=== PATIENT | female | born 1945 | race Caucasian/White ===

== ENCOUNTER 2023-05-01 16:43 | Emergency (ER) | payer MEDICARE, BC, SELFPAY ==
[2023-05-01 17:04] VITALS: BP 161/84; PULSE 78; RESP 16; TEMP 36.8; O2SAT 97; BMI 24.1
--- NOTE | 2023-05-01 18:39 | CTR_ITS ---
PROCEDURE INFORMATION: Exam: CT Cervical Spine Without Contrast Exam date and time: 05/01/2023 7:20 PM Age: 77 years old Clinical indication: Injury or trauma; Fall; Blunt trauma; Additional info: Fall/trauma TECHNIQUE: Imaging protocol: Computed tomography of the cervical spine without contrast. Radiation optimization: All CT scans at this facility use at least one of these dose optimization techniques: automated exposure control; mA and/or kV adjustment per patient size (includes targeted exams where dose is matched to clinical indication); or iterative reconstruction. COMPARISON: CT head wo con* [id number] 01/05/2023 19:20 RADIATION DOSE METRICS: Total DLP (mGy-cm): 173 FINDINGS: Bones/joints: The vertebral body alignment and stature is intact. No fracture. Benign bone island in the T2 vertebral body. Hypertrophic degenerative changes of the facets. Bony fusion of the C2-C3 facets. No significant foraminal stenosis identified. Posterior disc bulge at C6-C7 with mild central canal stenosis. Lungs: Lung apices are normal. Thyroid: 2.3 cm right thyroid nodule with an adjacent coarse calcification. Dedicated ultrasound follow-up is recommended. Soft tissues: Unremarkable. CT/CT cervical spin wo con* [id number] IMPRESSION: 1. No acute skeletal findings. 2. Right thyroid nodule and calcification. Follow-up with ultrasound is recommended. COMMENTS: Consistent with the [employer]'s Incidental Findings Committee white paper (J Am Abdirahman Radiol 2015): In patients aged 35 years and older with an incidental thyroid nodule equal to or greater than 1.[address], MRI or extrathyroidal US, further evaluation with dedicated thyroid US is recommended for patients with normal life expectancy and without comorbidities. For smaller nodules without suspicious features, no further evaluation or follow up is recommended.
--- NOTE | 2023-05-01 18:39 | CTR_ITS ---
PROCEDURE INFORMATION: Exam: CT Head Without Contrast Exam date and time: 05/01/2023 7:20 PM Age: 77 years old Clinical indication: Injury or trauma; Fall; Blunt trauma (contusions or hematomas) TECHNIQUE: Imaging protocol: Computed tomography of the head without contrast. Radiation optimization: All CT scans at this facility use at least one of these dose optimization techniques: automated exposure control; mA and/or kV adjustment per patient size (includes targeted exams where dose is matched to clinical indication); or iterative reconstruction. COMPARISON: CT cervical spin wo con* [id number] 01/05/2023 19:20 RADIATION DOSE METRICS: Total DLP (mGy-cm): 1135 FINDINGS: Brain: Moderate cortical volume loss. Mild hypodensities in supratentorial periventricular and subcortical white matter, consistent with microangiopathy. No intracranial hemorrhage. Cerebral ventricles: No ventriculomegaly. Paranasal sinuses: Visualized sinuses are unremarkable. No fluid levels. Mastoid air cells: Visualized mastoid air cells are well aerated. Bones/joints: Unremarkable. No acute fracture. Soft tissues: Large right parietal scalp hematoma. Vasculature: No hyperdense artery. CT/CT head wo con* [id number] IMPRESSION: 1. No fracture or intracranial hemorrhage. 2. Large right parietal scalp hematoma.
--- NOTE | 2023-05-01 18:39 | XRR_ITS ---
PROCEDURE INFORMATION: Exam: XR Left Ankle Exam date and time: 05/01/2023 6:43 PM Age: 77 years old Clinical indication: Injury or trauma; Fall; Blunt trauma; Ankle; Left; Additional info: Trauma/fall TECHNIQUE: Imaging protocol: Radiologic exam of the left ankle. Views: 3 or more views. COMPARISON: No relevant prior studies available. FINDINGS: Bones/joints: Normal. Soft tissues: Lateral soft tissue swelling. XR/XR ankle LT min 3V* [id number] IMPRESSION: No fracture visualized.
--- NOTE | 2023-05-01 18:40 | W.ED.FALL ---
HPI - Fall General: Chief Complaint: Fall Stated Complaint: fell, head and ankle pain Time Seen by Provider: 05/01/23 18:27 Source: patient Mode of arrival: ambulatory Limitations: no limitations History of Present Illness: Patient is a nice 77-year-old female who presents to the ED today for evaluation following a slip and fall on ice. Patient states earlier today she accidentally fell on a slippery surface and struck the top of her head. No LOC. She reports her neck feels sore. She also has a complaint of left ankle pain. She is able to ambulate on the ankle. Denies back pain. She has no other complaints other than previously stated. She is not on anticoagulation. MD complaint: fall Onset (ago): hour(s) Fall from: standing Fall witnessed: no Place fall occurred: home Loss of consciousness: None Prolonged down time: no Symptoms prior to fall: none Context: tripped/slipped Location of injury: head and neck Location of injury - extremities: Left: ankle Severity: mild Associated symptoms-after fall: Reports no associated symptoms, headache(s) and neck pain; Denies abdominal pain, chest pain, hematuria or lightheadedness Review of Systems Eyes: Denies: change in vision, blurry vision, photophobia, eye discharge, floaters or seeing flashes ENMT: Denies: throat pain, odynophagia, ear or mastoid pain, ear discharge, nasal discharge, epistaxis or sinus pain Card: Denies: chest pain, palpitations, lightheadedness, syncope or pre-syncope Resp: Denies: dyspnea or pain on inspiration GI: Denies: abdominal pain : Denies: flank pain or hematuria Musc: Reports: neck pain, joint pain (L ankle) and joint swelling (L ankle); Denies: back pain or extremity pain Neuro: Reports: headache(s); Denies: numbness in extremities, weakness in extremities, sensory changes or dizziness Physical Exam Const: COMMON NORMALS: no acute distress, average body habitus, patient oriented x3, no limitations, healthy appearing, alert and well nourished GENERAL APPEARANCE: cooperative ORIENTATION/CONSCIOUSNESS: Yes awake, Yes oriented to person, Yes oriented to place and Yes oriented to time HENMT: COMMON NORMALS: normocephalic and TM's normal bilaterally HEAD & SCALP: normal to inspection, normocephalic and hematoma (top/vertex of scalp); no Alexander's sign and no raccoon eyes FACE & SINUS: normal facial exam TYMPANIC MEMBRANE: TM's normal bilaterally MOUTH: other (no intraoral injuries noted) Eye: COMMON NORMALS: Equal, round and reactive pupils present and EOMs intact bilaterally GENERAL EYE: appearance normal, both eyes and all related structures and normal light reflex PUPIL: Yes Equal, round and reactive pupils present DIRECT OPHTHALMOSCOPY: Yes normal light reflex Neck/C-Spine: COMMON NORMALS: full ROM GENERAL: Yes normal visual inspection CERVICAL SPINE: Yes cervical ROM normal, No pain with cervical ROM, No Cervical spine tenderness, No step off deformity and No Paracervical muscle tenderness Chest: COMMONS NORMALS: normal inspection of the chest and normal palpation of entire chest wall Resp: COMMON NORMALS: normal respiratory effort and clear to auscultation bilaterally AUSCULTATION: clear to auscultation bilaterally Cardio: COMMON NORMALS: regular rate and regular rhythm RATE: regular rate RHYTHM: regular rhythm GI: COMMON NORMALS: Normal to inspection, nondistended, normoactive bowel sounds present, Soft to palpation, non-tender, No hepatosplenomegaly present and no masses INSPECTION: Yes normal to inspection and No abdominal wall ecchymosis AUSCULTATION: Yes normoactive bowel sounds PALPATION: Yes Soft to palpation and Yes No hepatosplenomegaly present Back/Pelvis: COMMON NORMALS: thoracic and lumbar spine normal to inspection, no thoracic nor lumbar tenderness and thoraco-lumbar ROM normal Extremity: COMMON NORMALS: normal to inspection, capillary refill normal and no calf tenderness GENERAL: Yes normal exam except as noted LEFT LOWER EXTREMITY: Yes ankle joint (TTP and edema to L lateral malleolus) Left ankle: Yes neurovascular exam (normal) Neuro: EMMETT COMA SCALE: document GCS findings Emm[place] coma scale eye opening: Spontaneous [place] coma scale verbal response: Orientated [place] coma scale motor response: Obey commands [place] coma scale total score: 15 COMMON NORMALS: patient oriented x3, CN's II-XII intact bilaterally, moves all extremities, no focal motor deficits, no sensory deficits noted and gait normal SENSORIUM/ORIENTATION: Yes alert, Yes oriented to person, Yes oriented to place and Yes oriented to time SPEECH: speech normal GAIT: Yes Normal gait present Skin: COMMON NORMALS: no rashes or lesions noted GENERAL SKIN EXAM: no rashes or lesions noted TRAUMA: no lacerations or abrasions Course Vital Signs: Vital signs: Vital Signs Temperature 98.3 F 05/01/23 17:04 Pulse Rate 78 05/01/23 17:04 Respiratory Rate 16 05/01/23 17:04 Blood Pressure 161/84 05/01/23 17:04 Pulse Oximetry 97 05/01/23 17:04 Oxygen Delivery Me thod Room Air 05/01/23 17:04 MDM - Fall Medical Decision Making Patient here following a slip and fall on ice. Patient reports striking her head and injuring her left ankle. CTs of her head and cervical spine are negative apart from a scalp hematoma. There was an incidental finding of a thyroid nodule which patient was made aware of and will follow-up with her primary care provider for. XR of her ankle is negative. Patient will be allowed discharge with return precautions. Medical Records I reviewed the patient's medical records. Lab Data Radiology Impressions Ankle X-Ray 05/01/23 18:39 IMPRESSION: No fracture visualized. Cervical Spine CT 05/01/23 18:39 IMPRESSION: 1. No acute skeletal findings. 2. Right thyroid nodule and calcification. Follow-up with ultrasound is recommended. COMMENTS: Consistent with the [employer]'s Incidental Findings Committee white paper (J Am Abdirahman Radiol 2015): In patients aged 35 years and older with an incidental thyroid nodule equal to or greater than 1.[address], MRI or extrathyroidal US, further evaluation with dedicated thyroid US is recommended for patients with normal life expectancy and without comorbidities. For smaller nodules without suspicious features, no further evaluation or follow up is recommended. Head CT 05/01/23 18:39 IMPRESSION: 1. No fracture or intracranial hemorrhage. 2. Large right parietal scalp hematoma. All radiology interpretation(s) finalized by discharge Discharge Plan Discharge Patient Disposition: Home Clinical Impression: Thyroid nodule incidentally noted on imaging study Fall from slipping on ice Qualifiers: Encounter type: initial encounter Qualified Code(s): W00.9XXA - Unspecified fall due to ice and snow, initial encounter Left ankle sprain Qualifiers: Encounter type: initial encounter Involved ligament of ankle: unspecified ligament Qualified Code(s): S93.402A - Sprain of unspecified ligament of left ankle, initial encounter Contusion of scalp Qualifiers: Encounter type: initial encounter Qualified Code(s): S00.03XA - Contusion of scalp, initial encounter Condition: Stable Discharge Orders: Discharge ED (Routine); Ordered 05/01/23 Ordered By: Milagro German Referrals: Roddy Salinas MD [Primary Care Provider] - Activity Restrictions/Additional Instructions: As we discussed your imaging here is negative. There was a nodule found incidentally on your cervical spine CT. They recommend ultrasound of your thyroid. This can be performed on an outpatient basis through your primary care provider. Coding Level of Care Code ED Digital Art Director for Wyatt Sandoval
== END 2023-05-01 20:49 | disposition home or self-care (01) ==
PROVIDERS: Emergency Provider Physician Assistant; PCP Family Medicine
DX: S93.402A Sprain of unspecified ligament of left ankle, initial encounter (principal); S00.03XA Contusion of scalp, initial encounter; E04.1 Nontoxic single thyroid nodule; W00.0XXA Fall on same level due to ice and snow, initial encounter
CPT/HCPCS: 70450; 72125; 73610; 99284